=== PATIENT | male | born 1990 | race Caucasian/White ===

== ENCOUNTER 2022-03-10 15:21 | Inpatient (IN) | payer OTHER, SELFPAY ==
[2022-03-10 15:43] VITALS: BP 147/102; PULSE 108; RESP 16; TEMP 37.1; O2SAT 97; BMI 25.0
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
[2022-03-10 16:00] VITALS: RESP 16
--- NOTE | 2022-03-10 16:11 | PC.NURSE ---
Pamella Gutierrez adult foster care nurse,
--- NOTE | 2022-03-10 16:23 | PC.NURSE ---
Pt's mother Vy Taylor phone [phone]
[2022-03-10 16:25] LABS: COVID-19 Test Negative (Negative); IDNOW Serial# 55D5AD1C
[2022-03-10 16:29] LABS: MANUAL DIFF FLAG NO
[2022-03-10 16:33] LABS: Basophils Percent Auto 0.4 % (0-2); Eosinophils Absolute Auto 0.4 X10*3/uL (0.0-0.4); Eosinophils Percent Auto 5.5 % (0-4); Hematocrit 44.3 % (42.0-52.0); Hemoglobin 16.1 g/dl (14.0-18.0); Imm Gran Abs Auto 0.03 X10*3/uL (0.00-0.03); Imm Gran Pct Auto 0.4 % (0.0-0.4); Lymphocytes Absolute Auto 1.9 X10*3/uL (1.2-4.9); Lymphocytes Percent Auto 23.8 % (20-40); Mean Corpuscular HGB Conc 36.3 g/dl (31.0-36.0); Mean Corpuscular Hemoglobin 31.3 pg (27.0-33.0); Mean Corpuscular Volume 86.2 fL (80.0-98.0); Monocytes Absolute Auto 0.5 X10*3/uL (0.1-1.2); Monocytes Percent Auto 6.8 % (2-11); Neutrophils Absolute Auto 5.1 x10*3/uL (2.0-8.3); Neutrophils Percent Auto 63.1 % (45-73); Platelet Count 236 X10*3/uL (160-400); Red Blood Count 5.14 X10*6/uL (4.60-5.80)
[2022-03-10 17:06] LABS: Alanine Aminotransferase 13 U/L (0-40); Albumin Level 5.1 g/dL (3.5-5.0); Alkaline Phosphatase 131 U/L (39-117); Anion Gap 15 (12-20); Aspartate Amino Transferase 21 U/L (5-37); Bilirubin Total 0.8 mg/dL (0.0-1.0); Blood Urea Nitrogen 8 mg/dL (9-16); Calcium 10.5 mg/dL (8.4-10.2); Carbon Dioxide 28 mmol/L (22-29); Chloride 102 mmol/L (96-108); Creatinine Clr Calc Pharmacy 114.2; Estimated Glomerular Filt Rate > 60; Ethanol < 10 mg/dL; Glucose Random 84 mg/dL (60-115); Potassium 4.3 mmol/L (3.3-5.1); Sodium 141 mmol/L (135-145)
[2022-03-10 17:15] LABS: TSH reflex Free T4 5.29 uIU/mL (0.32-4.0)
[2022-03-10 18:18] LABS: Free T4 (Free Thyroxine) 1.08 ng/dL (0.71-1.85)
[2022-03-10 18:42] LABS: Amphetamine Screen Urine Not Detected (Not Detect); Barbiturates, Urine Not Detected (Not Detect); Benzodiazepines Screen Urine Not Detected (Not Detect); Cannabinoid Screen Urine Not Detected (Not Detect); Cocaine Screen Urine Not Detected (Not Detect); Fentanyl, urine Not Detected (Not Detect); Opiate Screen Urine Not Detected (Not Detect); Phencyclidine Screen Urine Not Detected (Not Detect)
[2022-03-10] MEDS: hydrOXYzine HCL 50 MG TABLET PO (20:51)
[2022-03-10] MEDS: risperiDONE 0.5 MG TABLET PO (20:51)
--- NOTE | 2022-03-11 | ECG_ITS ---
Test Reason : R/O QCT PROLONGATION Blood Pressure : / mmHG Vent. Rate : 067 BPM Atrial Rate : 067 BPM P-R Int : 132 ms QRS Dur : 090 ms QT Int : 402 ms P-R-T Axes : 049 048 051 degrees QTc Int : 424 ms Normal sinus rhythm with sinus arrhythmia Normal ECG No previous ECGs available Referred By: Indy Traore Electronically Signed By:Davi Barber
--- NOTE | 2022-03-11 06:16 | PC.NURSE ---
Patient slept through the night, no distress observed/reported at this time, patient struggled to fall sleep, medication compliant, behavior non concerning, disposition per care team is section 12 inpatient bed search, VSS, will continue to monitor.
[2022-03-11] MEDS: Sertraline HCL 50 MG TABLET 150 MG PO (09:06)
--- NOTE | 2022-03-11 13:03 | PC.NURSE ---
assumed care of pt at 1100, pt resting quietly in bed, plan to admit to [facility] later today. mother (Gloria) has called to speak to CARE team, care team notified of request.
--- NOTE | 2022-03-11 16:19 | PC.NURSE ---
RN-RN report given, tech at bedside obtaining EKG.
[2022-03-11 18:00] VITALS: RESP 16
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
[2022-03-12] MEDS: guanFACINE HCl ER 2 MG TAB.ER.24H PO (08:10)
[2022-03-12] MEDS: Sertraline HCL 50 MG TABLET 150 MG PO (08:10)
[2022-03-12 08:58] LABS: Estimated Average Glucose 85 mg/dL; Hemoglobin A1c % 4.6 %
[2022-03-12 09:15] LABS: Cholesterol 203 mg/dL; HDL Cholesterol 40 mg/dL; LDL Cholesterol Calculated 151 mg/dl; Magnesium 1.9 mg/dL (1.6-2.6); Triglycerides 60 mg/dL
[2022-03-12 09:31] VITALS: BP 166/94; PULSE 126; RESP 18; TEMP 36.7; O2SAT 97
[2022-03-12 09:48] LABS: Folate 6.5 ng/mL (> or = 4.0); Free T4 (Free Thyroxine) 1.04 ng/dL (0.71-1.85); Thyroid Stimulating Hormone 1.07 uIU/mL (0.32-4.0); Vitamin B12 < 148 pg/mL (200-900)
[2022-03-12] MEDS: hydrOXYzine HCL 50 MG TABLET PO (15:28)
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
[2022-03-12 16:40] VITALS: BP 133/82; PULSE 98; TEMP 36.3
[2022-03-12] MEDS: OLANZapine 5 MG TABLET PO (19:43)
[2022-03-13] MEDS: Sertraline HCL 50 MG TABLET 150 MG PO (09:06)
[2022-03-13] MEDS: Thiamine HCL 100 MG TABLET PO (09:06)
[2022-03-13] MEDS: guanFACINE HCl ER 2 MG TAB.ER.24H PO (09:06)
[2022-03-13 09:11] VITALS: BP 129/81; PULSE 84; RESP 16; TEMP 36.4; O2SAT 98
[2022-03-13 16:05] VITALS: BP 130/87; PULSE 99; TEMP 35.8
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
[2022-03-14] MEDS: Sertraline HCL 50 MG TABLET 150 MG PO (08:17)
[2022-03-14] MEDS: Thiamine HCL 100 MG TABLET PO (08:17)
[2022-03-14] MEDS: guanFACINE HCl ER 2 MG TAB.ER.24H PO (08:17)
[2022-03-14 08:27] VITALS: BP 128/81; PULSE 84; RESP 16; TEMP 36.4; O2SAT 96
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
[2022-03-14 17:06] VITALS: BP 121/78; PULSE 74; RESP 14; TEMP 36.7; O2SAT 99
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
[2022-03-14] MEDS: OLANZapine 5 MG TABLET PO (22:30)
[2022-03-15 08:00] VITALS: BP 110/81; PULSE 80; RESP 18; TEMP 35.8; O2SAT 97
[2022-03-15] MEDS: guanFACINE HCl ER 2 MG TAB.ER.24H PO (08:34)
[2022-03-15] MEDS: Thiamine HCL 100 MG TABLET PO (08:34)
[2022-03-15] MEDS: Sertraline HCL 50 MG TABLET 150 MG PO (08:34)
[2022-03-15 17:30] VITALS: BP 118/63; PULSE 61; RESP 16; TEMP 36.5; O2SAT 97
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
--- NOTE | 2022-03-15 21:33 | PC.NURSE ---
pt has been rocking in chair all shift. Rocking is a coping skills for pt. pt refuses medications and ignores people when they are talking to him.
[2022-03-16 06:00] VITALS: BP 106/59; PULSE 59; RESP 18
[2022-03-16] MEDS: guanFACINE HCl ER 2 MG TAB.ER.24H PO (08:27)
[2022-03-16] MEDS: Thiamine HCL 100 MG TABLET PO (08:27)
[2022-03-16] MEDS: Sertraline HCL 100 MG TABLET PO (08:27)
[2022-03-16] MEDS: HaloperidoL 1 MG TABLET PO (08:27)
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
[2022-03-16] MEDS: OLANZapine 5 MG TABLET PO (12:37)
[2022-03-16 17:13] VITALS: BP 106/61; PULSE 63; TEMP 36.2; O2SAT 94
--- NOTE | 2022-03-16 18:47 | PC.NURSE ---
Patient's mother called to check on the patient's status. This telegraphic typewriter installer told her he was seen out on the unit, in the kitchen, eating crackers. She told this telegraphic typewriter installer that patient was on Wellbutrin in the past but had 2 seizures; and patient had been tried on Depakote in the past but the medication was discontinued. The information was relayed to provider on M5.
--- NOTE | 2022-03-16 21:22 | PC.NURSE ---
Patient declined HS medications: Haldol 1 mg po, Depakote 500 mg po and Zyprexa 20 mg po. Patient told this content writer I must now get some sleep, that's very important.
[2022-03-17 08:19] VITALS: BP 117/72; PULSE 79; RESP 16; TEMP 36.4; O2SAT 100
[2022-03-17] MEDS: HaloperidoL 1 MG TABLET PO (08:37)
[2022-03-17] MEDS: guanFACINE HCl ER 2 MG TAB.ER.24H PO (08:38)
[2022-03-17] MEDS: Levothyroxine Sodium 25 MCG TABLET PO (08:38)
[2022-03-17] MEDS: Sertraline HCL 100 MG TABLET PO (08:38)
[2022-03-17] MEDS: Thiamine HCL 100 MG TABLET PO (08:38)
[2022-03-17 16:05] VITALS: BP 113/55; PULSE 86; TEMP 37.1
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
[2022-03-17] MEDS: OLANZapine 5 MG TABLET PO (19:46)
[2022-03-18 07:00] VITALS: BMI 19.2
[2022-03-18] MEDS: Sertraline HCL 100 MG TABLET PO (08:26)
[2022-03-18] MEDS: Thiamine HCL 100 MG TABLET PO (08:26)
[2022-03-18] MEDS: guanFACINE HCl ER 2 MG TAB.ER.24H PO (08:26)
[2022-03-18 09:03] VITALS: BP 121/66; PULSE 83; RESP 16; TEMP 36.4; O2SAT 98
--- NOTE | 2022-03-18 11:21 | PC.NURSE ---
Met with patient following verbal altercation during group. Patient angry, broke plastic bin in room. Upset with male peer, states he is rude , and shouldn't talk to people like that . States I am going to put a hit on that mother fucker . I am gonna put a contract out on him . States he reminds him of his relative Angelo. He is gonna have our rights taken away, people like that . I would rather go to snf than have people like that out there . Patient tangential, disorganized, rambling with loose associations. Making several threatening statements toward male peer.
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
[2022-03-18 18:00] VITALS: BP 146/80; PULSE 75; RESP 14; TEMP 36.6
[2022-03-18] MEDS: OLANZapine 5 MG TABLET PO (19:30)
[2022-03-19 08:30] VITALS: BP 120/70; PULSE 76; RESP 16; TEMP 36.2; O2SAT 97
[2022-03-19] MEDS: guanFACINE HCl ER 2 MG TAB.ER.24H PO (08:55)
[2022-03-19] MEDS: Sertraline HCL 100 MG TABLET PO (08:55)
[2022-03-19] MEDS: Thiamine HCL 100 MG TABLET PO (08:55)
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
[2022-03-19 18:52] VITALS: BP 136/84; PULSE 94; RESP 16; TEMP 36.5; O2SAT 97
--- NOTE | 2022-03-19 19:33 | PC.NURSE ---
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 staff reports pt entered kitchen during art group and asked if he could sit next to her and she said yes. Pt then asked if they would be arrested for sitting there to which staff replied, no. pt was then reported to say you look like you're [age] and have never been fucked and still live at home w/ your parents . At this point staff stated they were going to finish art group to which the pt is reported to have stated, why, is it because of what I said or because its true . Staff then ended art group and had refused to further engage w/ the pt. TW then sat with pt to discuss boundaries and what is acceptable behavior.
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
--- NOTE | 2022-03-19 21:58 | PC.NURSE ---
pt refused medication scheduled for 2100. im gonna stay up all night when tw told pt he would not feel so great the next day pt stated Yeh, three days no sleep and I'll go into psychosis or have a seizure, thats fine with me
[2022-03-20 06:00] VITALS: BP 104/57; PULSE 69; TEMP 36.3; O2SAT 99
[2022-03-20] MEDS: Thiamine HCL 100 MG TABLET PO (08:48)
[2022-03-20] MEDS: Sertraline HCL 100 MG TABLET PO (08:48)
[2022-03-20] MEDS: guanFACINE HCl ER 2 MG TAB.ER.24H PO (08:48)
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
[2022-03-20 16:10] VITALS: BP 134/72; PULSE 103; TEMP 36.7; O2SAT 97
[2022-03-20] MEDS: OLANZapine ODT 10 MG TAB.RAPDIS TRANSLINGU (22:19)
[2022-03-21 06:00] VITALS: BP 100/59; PULSE 56; RESP 16; TEMP 36.3; O2SAT 98
[2022-03-21] MEDS: Thiamine HCL 100 MG TABLET PO (08:06)
[2022-03-21] MEDS: guanFACINE HCl ER 2 MG TAB.ER.24H PO (08:06)
[2022-03-21] MEDS: Sertraline HCL 100 MG TABLET PO (08:06)
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
--- NOTE | 2022-03-21 17:37 | PC.NURSE ---
pt became increasingly agitated after phone call with mom, conversation was overheard, with tangential rants about guns, race, war, and extreme violence. Pt went to room, slammed door. Staff found pt writing on the wall, and was redirected to write on a piece of paper. Pt slammed door after staff left the room, closing the door behind him. Pt offered PRN medications by TW. TW found pt rocking on bed, talking to self using a [place] accent. Refused PRN medications. Will continue to monitor.
[2022-03-21 18:00] VITALS: RESP 16
[2022-03-21] MEDS: OLANZapine ODT 10 MG TAB.RAPDIS TRANSLINGU (19:55)
[2022-03-21] MEDS: Benztropine Mesylate 1 MG TABLET PO (19:55)
[2022-03-21] MEDS: traZODone HCL 50 MG TABLET PO (19:55)
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
[2022-03-22 06:00] VITALS: BP 112/67; PULSE 73; RESP 16; TEMP 36.4; O2SAT 97
[2022-03-22] MEDS: guanFACINE HCl ER 2 MG TAB.ER.24H PO (08:53)
[2022-03-22] MEDS: Thiamine HCL 100 MG TABLET PO (08:53)
[2022-03-22] MEDS: Sertraline HCL 100 MG TABLET PO (08:53)
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
[2022-03-22 17:30] VITALS: BP 131/70; PULSE 77; TEMP 36.2
[2022-03-22] MEDS: OLANZapine ODT 10 MG TAB.RAPDIS TRANSLINGU (20:44)
[2022-03-23 08:45] VITALS: BP 141/74; PULSE 100; RESP 18; TEMP 36.2; O2SAT 99
[2022-03-23] MEDS: Sertraline HCL 100 MG TABLET PO (08:53)
[2022-03-23] MEDS: Thiamine HCL 100 MG TABLET PO (08:53)
[2022-03-23] MEDS: guanFACINE HCl ER 2 MG TAB.ER.24H PO (08:53)
[2022-03-23] MEDS: OLANZapine 5 MG TABLET PO (13:24)
[2022-03-23] MEDS: hydrOXYzine HCL 50 MG TABLET PO (13:24)
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
[2022-03-23 22:20] VITALS: BP 119/70; PULSE 83; TEMP 36.1; O2SAT 98
[2022-03-23] MEDS: OLANZapine ODT 10 MG TAB.RAPDIS TRANSLINGU (22:24)
[2022-03-24] MEDS: guanFACINE HCl ER 2 MG TAB.ER.24H PO (08:52)
[2022-03-24] MEDS: Thiamine HCL 100 MG TABLET PO (08:52)
[2022-03-24] MEDS: Sertraline HCL 100 MG TABLET PO (08:53)
[2022-03-24 09:32] VITALS: BP 134/78; PULSE 101; RESP 16; TEMP 36.2; O2SAT 100
[2022-03-24 18:00] VITALS: BP 125/78; PULSE 78; RESP 16; TEMP 36.4; O2SAT 97
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
[2022-03-24] MEDS: OLANZapine ODT 10 MG TAB.RAPDIS TRANSLINGU (19:38)
[2022-03-24] MEDS: lamoTRIgine 25 MG TABLET PO (19:38)
[2022-03-25] MEDS: guanFACINE HCl ER 2 MG TAB.ER.24H PO (08:28)
[2022-03-25] MEDS: Thiamine HCL 100 MG TABLET PO (08:28)
[2022-03-25] MEDS: Sertraline HCL 100 MG TABLET PO (08:28)
[2022-03-25 08:30] VITALS: BP 117/64; PULSE 77; RESP 18; TEMP 36.1; O2SAT 98
[2022-03-25 10:48] VITALS: BMI 19.8
[2022-03-25 16:55] VITALS: BP 116/66; PULSE 87; RESP 16; TEMP 36.3; O2SAT 96
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
[2022-03-25] MEDS: OLANZapine ODT 10 MG TAB.RAPDIS TRANSLINGU (19:26)
[2022-03-25] MEDS: lamoTRIgine 25 MG TABLET PO (19:26)
[2022-03-26] MEDS: Thiamine HCL 100 MG TABLET PO (08:37)
[2022-03-26] MEDS: Sertraline HCL 100 MG TABLET PO (08:37)
[2022-03-26] MEDS: guanFACINE HCl ER 2 MG TAB.ER.24H PO (08:37)
[2022-03-26 08:56] VITALS: BP 110/55; PULSE 62; RESP 14; TEMP 36.1; O2SAT 98
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
[2022-03-26 18:00] VITALS: BP 122/68; PULSE 85; RESP 16; TEMP 36.4; O2SAT 99
[2022-03-26] MEDS: OLANZapine ODT 10 MG TAB.RAPDIS TRANSLINGU (21:20)
[2022-03-26] MEDS: lamoTRIgine 25 MG TABLET PO (21:20)
[2022-03-27] MEDS: guanFACINE HCl ER 2 MG TAB.ER.24H PO (08:10)
[2022-03-27] MEDS: Sertraline HCL 100 MG TABLET PO (08:10)
[2022-03-27] MEDS: Thiamine HCL 100 MG TABLET PO (08:10)
[2022-03-27 08:23] VITALS: BP 116/69; PULSE 80; RESP 16; TEMP 36.2; O2SAT 98
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
[2022-03-27 16:55] VITALS: BP 123/63; PULSE 75; RESP 16; TEMP 36.4; O2SAT 98
[2022-03-27] MEDS: lamoTRIgine 25 MG TABLET PO (20:08)
[2022-03-27] MEDS: OLANZapine ODT 10 MG TAB.RAPDIS TRANSLINGU (20:08)
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
[2022-03-28] MEDS: Thiamine HCL 100 MG TABLET PO (09:02)
[2022-03-28] MEDS: guanFACINE HCl ER 2 MG TAB.ER.24H PO (09:02)
[2022-03-28] MEDS: Sertraline HCL 100 MG TABLET PO (09:02)
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
[2022-03-28 09:16] VITALS: BP 112/67; PULSE 75; RESP 16; TEMP 36.8; O2SAT 98
[2022-03-28 18:00] VITALS: BP 110/72; PULSE 76; RESP 16; TEMP 36.6; O2SAT 97
[2022-03-28] MEDS: LORazepam 0.5 MG TABLET PO (21:09)
[2022-03-28] MEDS: OLANZapine ODT 10 MG TAB.RAPDIS TRANSLINGU (21:09)
[2022-03-28] MEDS: lamoTRIgine 25 MG TABLET PO (21:09)
[2022-03-29] MEDS: guanFACINE HCl ER 2 MG TAB.ER.24H PO (09:09)
[2022-03-29] MEDS: Thiamine HCL 100 MG TABLET PO (09:09)
[2022-03-29] MEDS: Sertraline HCL 100 MG TABLET PO (09:09)
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
[2022-03-29 09:11] VITALS: BP 123/78; PULSE 87; RESP 18; TEMP 36.2; O2SAT 97
[2022-03-29] MEDS: OLANZapine ODT 10 MG TAB.RAPDIS TRANSLINGU (21:14)
[2022-03-29] MEDS: lamoTRIgine 25 MG TABLET PO (21:14)
[2022-03-29 21:22] VITALS: BP 124/68; PULSE 85; RESP 14; TEMP 37.1
[2022-03-30] MEDS: guanFACINE HCl ER 2 MG TAB.ER.24H PO (08:16)
[2022-03-30] MEDS: Sertraline HCL 100 MG TABLET PO (08:16)
[2022-03-30] MEDS: Thiamine HCL 100 MG TABLET PO (08:17)
[2022-03-30 09:30] VITALS: BP 112/65; PULSE 82; RESP 16; TEMP 36.5; O2SAT 97
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
[2022-03-30 18:15] VITALS: BP 130/78; PULSE 80; TEMP 36.7
[2022-03-30] MEDS: OLANZapine ODT 10 MG TAB.RAPDIS TRANSLINGU (21:13)
[2022-03-30] MEDS: lamoTRIgine 25 MG TABLET PO (21:13)
[2022-03-31 07:40] VITALS: BP 91/66; PULSE 63; RESP 16; TEMP 36.7; O2SAT 97
[2022-03-31] MEDS: Omeprazole 20 MG CAPSULE.DR PO (08:15)
[2022-03-31] MEDS: guanFACINE HCl ER 2 MG TAB.ER.24H PO (08:15)
[2022-03-31] MEDS: Thiamine HCL 100 MG TABLET PO (08:15)
[2022-03-31] MEDS: Sertraline HCL 100 MG TABLET PO (08:15)
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
[2022-03-31 17:23] VITALS: BP 108/67; PULSE 72; RESP 16; TEMP 36.6; O2SAT 98
[2022-03-31] MEDS: OLANZapine ODT 10 MG TAB.RAPDIS TRANSLINGU (19:43)
[2022-03-31] MEDS: lamoTRIgine 25 MG TABLET PO (19:55)
[2022-04-01] MEDS: Omeprazole 20 MG CAPSULE.DR PO (06:35)
[2022-04-01] MEDS: Thiamine HCL 100 MG TABLET PO (08:48)
[2022-04-01] MEDS: Sertraline HCL 100 MG TABLET PO (08:48)
[2022-04-01] MEDS: guanFACINE HCl ER 2 MG TAB.ER.24H PO (08:48)
[2022-04-01 08:51] VITALS: BP 123/66; PULSE 81; RESP 16; TEMP 36.5; O2SAT 98
[2022-04-01 10:56] VITALS: BMI 20.2
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
[2022-04-01 19:18] VITALS: BP 118/73; PULSE 93
[2022-04-01] MEDS: lamoTRIgine 25 MG TABLET PO (19:28)
[2022-04-01] MEDS: OLANZapine ODT 10 MG TAB.RAPDIS TRANSLINGU (19:28)
[2022-04-02] MEDS: Sertraline HCL 100 MG TABLET PO (08:09)
[2022-04-02] MEDS: Thiamine HCL 100 MG TABLET PO (08:09)
[2022-04-02] MEDS: guanFACINE HCl ER 2 MG TAB.ER.24H PO (08:09)
[2022-04-02] MEDS: Omeprazole 20 MG CAPSULE.DR PO (08:10)
[2022-04-02 08:20] VITALS: BP 119/72; PULSE 77; RESP 16; TEMP 36.2; O2SAT 98
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
[2022-04-02] MEDS: Acetaminophen 325 MG TABLET 650 MG PO (20:55)
[2022-04-02] MEDS: lamoTRIgine 25 MG TABLET PO (20:56)
[2022-04-02] MEDS: OLANZapine ODT 10 MG TAB.RAPDIS TRANSLINGU (20:56)
[2022-04-02 21:00] VITALS: BP 140/88; PULSE 104; RESP 14; TEMP 36.7
--- NOTE | 2022-04-02 22:35 | PC.NURSE ---
PT reports he was throwing a water bottle cap and he hurt his left shoulder which he reports has been dislocated in the past. PT rates pain 8/10 but appears to have full ROM. Acetaminophen 650mg given with little effect. Dr. Zay Lambert contacted and made aware, no further orders @ this time.
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
[2022-04-03] MEDS: Sertraline HCL 100 MG TABLET PO (08:08)
[2022-04-03] MEDS: Omeprazole 20 MG CAPSULE.DR PO (08:08)
[2022-04-03] MEDS: guanFACINE HCl ER 2 MG TAB.ER.24H PO (08:08)
[2022-04-03] MEDS: Thiamine HCL 100 MG TABLET PO (08:08)
[2022-04-03 08:55] VITALS: PULSE 87; RESP 16; TEMP 36.9; O2SAT 98
[2022-04-03] MEDS: Acetaminophen 325 MG TABLET 650 MG PO ×2 (11:21→17:35)
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
[2022-04-03] MEDS: OLANZapine 5 MG TABLET PO ×2 (14:01→18:11)
[2022-04-03 18:00] VITALS: BP 115/68; PULSE 86; TEMP 36.6; O2SAT 96
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
[2022-04-03] MEDS: OLANZapine ODT 10 MG TAB.RAPDIS TRANSLINGU (20:22)
[2022-04-03] MEDS: lamoTRIgine 25 MG TABLET PO (20:22)
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
[2022-04-04 06:00] VITALS: BP 119/67; PULSE 67; RESP 16
[2022-04-04] MEDS: Thiamine HCL 100 MG TABLET PO (08:30)
[2022-04-04] MEDS: guanFACINE HCl ER 2 MG TAB.ER.24H PO (08:30)
[2022-04-04] MEDS: Sertraline HCL 100 MG TABLET PO (08:30)
[2022-04-04] MEDS: Omeprazole 20 MG CAPSULE.DR PO (08:31)
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
[2022-04-04] MEDS: OLANZapine ODT 10 MG TAB.RAPDIS TRANSLINGU (20:12)
[2022-04-04] MEDS: lamoTRIgine 25 MG TABLET PO (20:12)
[2022-04-05] MEDS: Acetaminophen 325 MG TABLET 650 MG PO (01:43)
[2022-04-05] MEDS: Omeprazole 20 MG CAPSULE.DR PO (06:39)
[2022-04-05 08:42] VITALS: BP 120/80; PULSE 93; RESP 18; TEMP 36.6; O2SAT 99
[2022-04-05] MEDS: guanFACINE HCl ER 2 MG TAB.ER.24H PO (08:46)
[2022-04-05] MEDS: Sertraline HCL 100 MG TABLET PO (08:46)
[2022-04-05] MEDS: Thiamine HCL 100 MG TABLET PO (08:46)
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
[2022-04-05 16:56] VITALS: BP 128/68; PULSE 84; RESP 18; TEMP 37; O2SAT 99
[2022-04-05] MEDS: lamoTRIgine 25 MG TABLET 50 MG PO (20:39)
[2022-04-05] MEDS: OLANZapine ODT 10 MG TAB.RAPDIS 15 MG TRANSLINGU (20:39)
[2022-04-06] MEDS: Omeprazole 20 MG CAPSULE.DR PO (06:30)
[2022-04-06 08:20] VITALS: BP 120/74; PULSE 89; RESP 16; TEMP 36.6; O2SAT 99
[2022-04-06] MEDS: Sertraline HCL 100 MG TABLET PO (08:30)
[2022-04-06] MEDS: Thiamine HCL 100 MG TABLET PO (08:30)
[2022-04-06] MEDS: guanFACINE HCl ER 2 MG TAB.ER.24H PO (08:30)
[2022-04-06 08:38] LABS: MANUAL DIFF FLAG NO
[2022-04-06 08:40] LABS: Basophils Percent Auto 0.6 % (0-2); Eosinophils Absolute Auto 0.3 X10*3/uL (0.0-0.4); Hematocrit 43.6 % (42.0-52.0); Hemoglobin 15.5 g/dl (14.0-18.0); Imm Gran Abs Auto 0.02 X10*3/uL (0.00-0.03); Imm Gran Pct Auto 0.4 % (0.0-0.4); Lymphocytes Absolute Auto 1.6 X10*3/uL (1.2-4.9); Lymphocytes Percent Auto 29.3 % (20-40); Mean Corpuscular HGB Conc 35.6 g/dl (31.0-36.0); Mean Corpuscular Hemoglobin 31.3 pg (27.0-33.0); Mean Corpuscular Volume 87.9 fL (80.0-98.0); Mean Platelet Volume 9.4 fL (9.4-12.4); Monocytes Absolute Auto 0.4 X10*3/uL (0.1-1.2); Monocytes Percent Auto 8.2 % (2-11); Neutrophils Percent Auto 56.5 % (45-73); Platelet Count 218 X10*3/uL (160-400); Red Blood Count 4.96 X10*6/uL (4.60-5.80); Red Cell Distribution Width 12.6 % (11.0-16.0); White Blood Count 5.4 X10*3/uL (4.8-10.8)
[2022-04-06 08:47] LABS: Estimated Average Glucose 85 mg/dL; Hemoglobin A1c % 4.6 %
[2022-04-06 09:02] LABS: Alanine Aminotransferase 16 U/L (0-40); Albumin Level 4.5 g/dL (3.5-5.0); Alkaline Phosphatase 134 U/L (39-117); Anion Gap 13 (12-20); Aspartate Amino Transferase 25 U/L (5-37); Bilirubin Total 0.9 mg/dL (0.0-1.0); Blood Urea Nitrogen 8 mg/dL (9-16); Calcium 9.5 mg/dL (8.4-10.2); Carbon Dioxide 30 mmol/L (22-29); Chloride 104 mmol/L (96-108); Creatinine Clr Calc Pharmacy 113.2; Estimated Glomerular Filt Rate > 60; Glucose Random 152 mg/dL (60-115); Potassium 4.2 mmol/L (3.3-5.1); Sodium 143 mmol/L (135-145); Total Protein 7.1 g/dL (6.5-8.0)
[2022-04-06 09:30] LABS: Folate 7.1 ng/mL (> or = 4.0); Vitamin B12 240 pg/mL (200-900)
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
[2022-04-06] MEDS: lamoTRIgine 25 MG TABLET 50 MG PO (19:29)
[2022-04-06] MEDS: OLANZapine ODT 10 MG TAB.RAPDIS 15 MG TRANSLINGU (19:29)
[2022-04-06 19:42] VITALS: BP 128/85; PULSE 65
[2022-04-07 08:15] VITALS: BP 115/75; PULSE 90; RESP 16; TEMP 36.7; O2SAT 97
[2022-04-07] MEDS: Thiamine HCL 100 MG TABLET PO (08:22)
[2022-04-07] MEDS: guanFACINE HCl ER 2 MG TAB.ER.24H PO (08:22)
[2022-04-07] MEDS: Omeprazole 20 MG CAPSULE.DR PO (08:22)
[2022-04-07] MEDS: Sertraline HCL 100 MG TABLET PO (08:22)
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
--- NOTE | 2022-04-07 15:47 | PC.NURSE ---
PT remains in behavioral control, no acute safety concerns. Provider contacted, changing safety checks from q 5 to q 15. Will continue to monitor any need for increase in safety checks.
[2022-04-07 18:00] VITALS: BP 126/68; PULSE 81; RESP 16; TEMP 36.4; O2SAT 98
[2022-04-07] MEDS: OLANZapine ODT 10 MG TAB.RAPDIS 15 MG TRANSLINGU (19:31)
[2022-04-07] MEDS: traZODone HCL 50 MG TABLET PO (19:31)
[2022-04-07] MEDS: lamoTRIgine 25 MG TABLET 50 MG PO (19:31)
[2022-04-08 07:00] VITALS: BMI 20.1
[2022-04-08] MEDS: Omeprazole 20 MG CAPSULE.DR PO (08:17)
[2022-04-08] MEDS: Thiamine HCL 100 MG TABLET PO (08:17)
[2022-04-08] MEDS: guanFACINE HCl ER 2 MG TAB.ER.24H PO (08:17)
[2022-04-08] MEDS: Sertraline HCL 100 MG TABLET PO (08:17)
[2022-04-08 08:39] VITALS: BP 120/72; PULSE 82; RESP 16; TEMP 36.2; O2SAT 96
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
[2022-04-08] MEDS: lamoTRIgine 25 MG TABLET 50 MG PO (18:42)
[2022-04-08] MEDS: OLANZapine ODT 10 MG TAB.RAPDIS 15 MG TRANSLINGU (18:42)
[2022-04-08 19:06] VITALS: BP 148/68; PULSE 101
[2022-04-09] MEDS: Omeprazole 20 MG CAPSULE.DR PO (06:31)
[2022-04-09] MEDS: guanFACINE HCl ER 2 MG TAB.ER.24H PO (08:19)
[2022-04-09] MEDS: Sertraline HCL 100 MG TABLET PO (08:19)
[2022-04-09] MEDS: Thiamine HCL 100 MG TABLET PO (08:19)
[2022-04-09 09:10] VITALS: BP 107/61; PULSE 83; RESP 18; TEMP 36.6; O2SAT 97
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
== END 2022-04-09 10:30 | disposition home or self-care (01) | DRG 753 ==
LOC: HO.ED 16:08 → HO.PM5 03-11 16:16
PROVIDERS: Admitting Provider Psychiatry & Neurology Psychiatry; Emergency Provider Emergency Medicine; Visit Provider Clinical Nurse Specialist Psychiatric/Mental Health, Adult
DX: F39 Unspecified mood [affective] disorder (principal); F43.10 Post-traumatic stress disorder, unspecified; F84.0 Autistic disorder; Z20.822 Contact with and (suspected) exposure to COVID-19; Z79.899 Other long term (current) drug therapy
CPT/HCPCS: 36415; 80053; 80061; 80307; 82077; 82607; 82746; 83036; 83735; 84439; 84443; 85025; 87635; 93005; 99285; S9485

== ENCOUNTER 2023-07-20 16:00 | Emergency (ER) | payer OTHER, SELFPAY ==
[2023-07-20] VITALS (8 sets, daily range): BP systolic 107–118; BP diastolic 62–84; PULSE 50–106; RESP 16–29; TEMP 36.2–37.1; O2SAT 97–99; BMI 16.7
--- NOTE | 2023-07-20 | ECG_ITS ---
Test Reason : RODRISA Blood Pressure : / mmHG Vent. Rate : 062 BPM Atrial Rate : 062 BPM P-R Int : 152 ms QRS Dur : 090 ms QT Int : 412 ms P-R-T Axes : 043 035 038 degrees QTc Int : 418 ms Normal sinus rhythm ST elevation, consider early repolarization, pericarditis, or injury Borderline ECG When compared with ECG of 11-MAR-2022 16:19, No significant change was found Referred By: Generic ED Physician Electronically Signed By:ELLI SUNG
[2023-07-20 16:41] LABS: MANUAL DIFF FLAG NO
[2023-07-20 16:49] LABS: Basophils Percent Auto 0.3 % (0-2); Eosinophils Absolute Auto 0.1 X10*3/uL (0.0-0.4); Eosinophils Percent Auto 0.8 % (0-4); Hematocrit 37.7 % (42.0-52.0); Hemoglobin 13.1 g/dl (14.0-18.0); Imm Gran Abs Auto 0.02 X10*3/uL (0.00-0.03); Imm Gran Pct Auto 0.3 % (0.0-0.4); Lymphocytes Absolute Auto 1.1 X10*3/uL (1.2-4.9); Lymphocytes Percent Auto 14.3 % (20-40); Mean Corpuscular HGB Conc 34.7 g/dl (31.0-36.0); Mean Corpuscular Hemoglobin 29.6 pg (27.0-33.0); Mean Corpuscular Volume 85.3 fL (80.0-98.0); Mean Platelet Volume 9.3 fL (9.4-12.4); Monocytes Absolute Auto 0.4 X10*3/uL (0.1-1.2); Monocytes Percent Auto 5.8 % (2-11); Neutrophils Absolute Auto 5.8 x10*3/uL (2.0-8.3); Neutrophils Percent Auto 78.5 % (45-73); Platelet Count 165 X10*3/uL (160-400); Red Blood Count 4.42 X10*6/uL (4.60-5.80); White Blood Count 7.4 X10*3/uL (4.8-10.8)
[2023-07-20 16:57] LABS: Alanine Aminotransferase 17 U/L (0-40); Albumin Level 4.3 g/dL (3.5-5.0); Alkaline Phosphatase 117 U/L (39-117); Anion Gap 11 (12-20); Aspartate Amino Transferase 21 U/L (5-37); Bilirubin Total 0.5 mg/dL (0.0-1.0); Blood Urea Nitrogen 14 mg/dL (9-16); Calcium 9.3 mg/dL (8.4-10.2); Carbon Dioxide 29 mmol/L (22-29); Chloride 107 mmol/L (96-108); Creatinine Clr Calc Pharmacy 96.6; Estimated Glomerular Filt Rate > 60; Glucose Random 90 mg/dL (60-115); Potassium 4.6 mmol/L (3.3-5.1); Sodium 142 mmol/L (135-145)
[2023-07-20 17:07] LABS: Troponin-I High Sensitivity < 2.7 ng/L (<3.5-35.0)
[2023-07-20] MEDS: 0.9 % Sodium Chloride 1,000 ML 999 ML IV (17:08)
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
[2023-07-20 17:40] LABS: Ethanol < 10 mg/dL
[2023-07-20 20:32] LABS: Amphetamine Screen Urine Not Detected (Not Detect); Barbiturates, Urine Not Detected (Not Detect); Benzodiazepines Screen Urine Not Detected (Not Detect); Buprenorphine Scr Not Detected (Not Detect); Cannabinoid Screen Urine Not Detected (Not Detect); Cocaine Screen Urine Not Detected (Not Detect); Fentanyl, urine Not Detected (Not Detect); Methadone Screen, Urine Not Detected (Not Detect); Opiate Screen Urine Not Detected (Not Detect); Oxycodone Screen Urine Not Detected (Not Detect); Phencyclidine Screen Urine Not Detected (Not Detect)
[2023-07-20 20:40] LABS: Troponin-I High Sensitivity < 2.7 ng/L (<3.5-35.0)
--- NOTE | 2023-07-20 23:55 | MHC.CARE ---
[facility] follow-up referral faxed and activated through [facility].
== END 2023-07-20 23:00 | disposition home or self-care (01) ==
PROVIDERS: Physician Assistant; Emergency Provider Internal Medicine
DX: R55 Syncope and collapse (principal); T67.5XXA Heat exhaustion, unspecified, initial encounter; X58.XXXA Exposure to other specified factors, initial encounter; Y93.9 Activity, unspecified; Y92.9 Unspecified place or not applicable; Y99.9 Unspecified external cause status; F25.9 Schizoaffective disorder, unspecified
CPT/HCPCS: 36415; 80053; 80307; 84484; 85025; 93005; 96360; 99284; S9485

== ENCOUNTER → 2023-07-20 16:19 | Outpatient (BNV) | payer OTHER, SELFPAY | PROVIDERS: Emergency Provider Internal Medicine; Visit Provider Internal Medicine | DX: R94.31 Abnormal electrocardiogram [ECG] [EKG] (principal); R41.82 Altered mental status, unspecified | CPT/HCPCS: 93010 ==